=== PATIENT | female | born 1975 | race Hispanic/Latino ===

== ENCOUNTER 2021-06-10 20:22 | Emergency (ER) | payer BC ==
[~2021-06-10] VITALS: Ht 152.4 cm; Wt 85.7 kg
[2021-06-10 21:35] VITALS: BP 117/61
== END 2021-06-10 21:35 | disposition left against medical advice (07) ==
LOC: FSED 20:45
DX: R05 Cough (principal); U07.1 COVID-19
CPT/HCPCS: 93005

== ENCOUNTER 2021-11-05 19:15 | Emergency (ER) | payer BC ==
[~2021-11-05] VITALS: Ht 152.4 cm; Wt 85.7 kg
[2021-11-05] MEDS ORDERED: IBUPROFEN 600 MG TAB PO STA (19:58)
[2021-11-05] MEDS ORDERED: IBUPROFEN 600 MG TAB ONE (20:12)
== END 2021-11-05 20:20 | disposition home or self-care (01) ==
LOC: ER 19:32
DX: R05.9 Cough, unspecified (principal); R07.89 Other chest pain
CPT/HCPCS: 93005; 99283

== ENCOUNTER 2023-09-14 13:54 | Emergency (ER) | payer BC, OTHER ==
[~2023-09-14] VITALS: Ht 152.4 cm; Wt 90.8 kg
[2023-09-14 14:40] VITALS: O2SAT 98
[2023-09-14] MEDS ORDERED: CEPHALEXIN500 MG PO (15:31)
== END 2023-09-14 15:26 | disposition home or self-care (01) ==
LOC: FSED 14:24
DX: L08.9 Local infection of the skin and subcutaneous tissue, unspecified (principal); L73.8 Other specified follicular disorders
CPT/HCPCS: 99283